=== PATIENT | male | born 1960 | race Caucasian/White ===

== ENCOUNTER 2017-08-17 09:06 | Emergency (ER) | payer SELFPAY ==
[~2017-08-17] VITALS: Ht 172.7 cm; Wt 104.5 kg
[2017-08-17 09:08] VITALS: TEMP 97.8
[2017-08-17 09:32] LABS: HEMATOCRIT 50.8 % (42.0-52.0); HEMOGLOBIN 17.6 g/dl (13.5-18.0); MEAN CELL VOLUME 92 fl (80.0-100.0); MEAN CORPUSCULAR HEMOGLOBIN 32 pg (27.0-31.0); MEAN CORPUSCULAR HGB CONC 35 g/dl (33.0-37.0); MEAN PLATELET VOLUME 10.6 fl (7.4-10.4); PLATELET COUNT 294 K/mm3 (130-400); RED BLOOD COUNT 5.55 M/mm3 (4.20-5.60); REDCELL DISTRIBUTION WIDTH-CV 13.6 % (11.5-14.5)
[2017-08-17 09:37] LABS: ADJUSTED CALCIUM 9.2 mg/dL (8.4-10.2); ALBUMIN 4.2 gm/dL (3.5-5.0); BILIRUBIN,TOTAL 1.6 mg/dL (0.0-1.0); CALCIUM 9.4 mg/dL (8.4-10.2); CREATININE, serum 1.07 mg/dL (0.66-1.25); POTASSIUM 4.3 mmol/L (3.4-5.0); TOTAL PROTEIN 7.8 gm/dL (6.4-8.2)
[2017-08-17 09:47] LABS: ADD PATHOLOGY DIFF REVIEW NO; WHITE BLOOD COUNT 20.6 K/mm3 (4.8-10.8)
[2017-08-17 09:59] LABS: TROPONIN-I 10.6 ng/mL (0.000-0.034)
[2017-08-17 10:03] LABS: BAND 15 % (0-10); BASOPHIL 2 % (0-2); NEUTROPHILS 60 % (42.0-75.2); PLATELET ESTIMATE NORMAL (NORMAL); TOTAL CELLS COUNTED 100
[2017-08-17 10:11] VITALS: BP 152/92; PULSE 120
== END 2017-08-17 10:01 | disposition short-term general hospital (02) ==
LOC: COL.ER 09:06
PROVIDERS: Emergency Medicine
DX: I21.3 ST elevation (STEMI) myocardial infarction of unspecified site (principal); Z87.891 Personal history of nicotine dependence
CPT/HCPCS: J1644; J3101

== ENCOUNTER 2017-11-19 11:50 | Outpatient (RCR) | payer SELFPAY | END 2017-11-24 12:30 | disposition home or self-care (01) | LOC: COL.CR 11:50 | DX: I21.3 ST elevation (STEMI) myocardial infarction of unspecified site (principal); Z48.812 Encounter for surgical aftercare following surgery on the circulatory system; I25.10 Atherosclerotic heart disease of native coronary artery without angina pectoris; Z95.5 Presence of coronary angioplasty implant and graft ==

== ENCOUNTER → 2017-12-03 | Outpatient (CLI) | payer SELFPAY | LOC: COL.LAB 10:32 | DX: I25.10 Atherosclerotic heart disease of native coronary artery without angina pectoris (principal) ==

== ENCOUNTER → 2017-12-03 | Outpatient (CLI) | payer SELFPAY ==
[2017-12-03 16:10] LABS: BASO # 0.1 (0.0-0.2); BASO % 0.8 % (0.0-2.0); EOS # 0.2 (0.0-0.7); EOS % 2.5 % (0-4.0); GRAN % 62.1 % (42.2-75.2); HEMATOCRIT 45.9 % (42.0-52.0); HEMOGLOBIN 15.2 g/dl (13.5-18.0); LYMPH % 25.1 % (20.0-51.0); MEAN CELL VOLUME 94 fl (80.0-100.0); MEAN CORPUSCULAR HEMOGLOBIN 31 pg (27.0-31.0); MEAN CORPUSCULAR HGB CONC 33 g/dl (33.0-37.0); MEAN PLATELET VOLUME 11.1 fl (7.4-10.4); MONO # 0.7 (0.1-0.6); MONO % 9.2 % (1.7-9.3); PLATELET COUNT 229 K/mm3 (130-400); RED BLOOD COUNT 4.86 M/mm3 (4.20-5.60); REDCELL DISTRIBUTION WIDTH-CV 12.8 % (11.5-14.5)
[2017-12-03 16:15] LABS: ALBUMIN 4.7 gm/dL (3.5-5.0); BILIRUBIN,TOTAL 0.6 mg/dL (0.0-1.0); CALCIUM 9.9 mg/dL (8.4-10.2); CREATININE, serum 1.03 mg/dL (0.66-1.25); POTASSIUM 4.8 mmol/L (3.4-5.0); TOTAL PROTEIN 8.2 gm/dL (6.4-8.2)
== END ==
LOC: COL.RAD 12:16
PROVIDERS: Nurse Practitioner
DX: M47.814 Spondylosis without myelopathy or radiculopathy, thoracic region (principal)

== ENCOUNTER 2018-01-14 15:15 | Outpatient (RCR) | payer MEDICAID | END 2018-02-15 10:50 | disposition home or self-care (01) | LOC: WSPT 15:15 | DX: M54.6 Pain in thoracic spine (principal) | CPT/HCPCS: G0283-GP ==

== ENCOUNTER 2018-07-15 12:54 | Outpatient (RCR) | payer SELFPAY | END 2018-07-17 | disposition home or self-care (01) | LOC: COL.CR | DX: Z02.9 Encounter for administrative examinations, unspecified (principal) ==

== ENCOUNTER 2018-10-03 15:45 | Outpatient (RCR) | payer SELFPAY | END 2018-10-16 | disposition home or self-care (01) | LOC: COL.CR | DX: Z02.9 Encounter for administrative examinations, unspecified (principal) ==

== ENCOUNTER 2018-11-07 15:37 | Outpatient (RCR) | payer SELFPAY | END 2019-01-15 | disposition home or self-care (01) | LOC: COL.CR | DX: Z02.89 Encounter for other administrative examinations (principal) ==

== ENCOUNTER 2020-09-04 15:19 | Outpatient (RCR) | payer SELFPAY | END 2020-10-24 | disposition home or self-care (01) | LOC: COL.CR | DX: Z02.89 Encounter for other administrative examinations (principal) ==

== ENCOUNTER 2021-02-26 06:11 | Outpatient (RCR) | payer SELFPAY | END 2021-05-27 | disposition home or self-care (01) | LOC: COL.CR | DX: Z02.89 Encounter for other administrative examinations (principal) ==

== ENCOUNTER → 2021-02-26 | Outpatient (CLI) | payer MEDICAID | LOC: DIA.ED 10:37 | DX: E11.9 Type 2 diabetes mellitus without complications (principal); Z79.84 Long term (current) use of oral hypoglycemic drugs; E66.8 Other obesity | CPT/HCPCS: G0108 ==

== ENCOUNTER → 2021-03-05 | Outpatient (CLI) | payer MEDICAID | LOC: DIA.ED 09:18 | DX: E11.9 Type 2 diabetes mellitus without complications (principal); Z79.84 Long term (current) use of oral hypoglycemic drugs; E78.5 Hyperlipidemia, unspecified; E66.8 Other obesity | CPT/HCPCS: G0108 ==

== ENCOUNTER → 2021-04-30 | Outpatient (CLI) | payer MEDICAID | LOC: DIA.ED 08:27 | DX: E11.9 Type 2 diabetes mellitus without complications (principal); Z79.84 Long term (current) use of oral hypoglycemic drugs; E78.5 Hyperlipidemia, unspecified; E66.8 Other obesity | CPT/HCPCS: G0108 ==